=== PATIENT | female | born 1975 | race African-American/Black ===

== ENCOUNTER 2017-01-10 07:36 | Emergency (ER) | payer OTHER ==
[~2017-01-10] VITALS: Ht 160 cm; Wt 81.6 kg
[~2017-01-10 07:36] MED LIST: ANTIVERT25 MG ORAL; CIPROFLOXACIN500 M2 ORAL; IBUPROFEN600 MG ORAL; NKM; ZOFRAN ODT4 MG ORAL; ZOFRAN4 M1 ORAL
--- NOTE | 2017-01-10 08:15 | Emergency Room Report ---
History of Present Illness General Chief Complaint: General Complaint Source: Patient, Medical Record Present Illness HPI The patient presents with left breast swelling and pain and redness. This started one week ago. It's gotten progressively worse. She had D and C 3 weeks ago. She was 6 weeks . They only gave her medication before the procedure and nothing after. There is no discharge from the breast. No fevers , NVD, vaginal d/c, dysuria. Taking motrin at home, but still with 9/10 pain - constant, pressure and burning, not radiating. Never with mammogram. Allergies: Coded Allergies: No Known Allergies (Unverified , 07/16/14) Patient History Past Medical History: see triage record Social History: Reports: smoking Social History Narrative has children Reviewed Nursing Documentation: PMH: Agreed, PSxH: Agreed Review of Systems All Other Systems: negative except mentioned in HPI Physical Exam Vital Signs Date Time Temp Pulse Resp B/P Pulse Ox O2 Delivery O2 Flow Rate FiO2 01/10/17 07:57 98.2 60 16 135/97 99 Room Air Sp02 EP Interpretation: reviewed, normal General Appearance: well appearing, no apparent distress, GCS 15 Head: normocephalic, atraumatic Eyes: bilateral eye PERRL, bilateral eye normal inspection ENT: hearing grossly normal, normal voice, moist mucus membranes Neck: full range of motion, supple Respiratory: no respiratory distress, speaking full sentences Cardiovascular #2: 2+ radial (L) Gastrointestinal: normal inspection Musculoskeletal: gait/station normal, normal range of motion Neurologic: alert, oriented x3, grossly normal Psychiatric: mood/affect normal - frustrated Skin: other - nodule under nipple L (7 o'clock) indurated, no fulctuance, nipple larger than R with some erythema. Skin without erythema Medical Decision Making Diagnostic Impression: Primary Impression: Breast abscess ER Course Patient presents with induration and swelling of the nipple and breast. There' s no fluctuance at this time. This is consistent with an early abscess versus possible mass. Time course more consistent with acute infection, though mass cannot be excluded. was too early to have issues with . As she drove herself here, we are limited in what we can give for analgesia (aside from Rx). The patient will be started on antibiotics and given analgesics. Pain improved. The patient needs to have followup with a surgeon and mammography. Patient stable for outpatient observation and treatment. Chest X-Ray Diagnostic Results Chest X-Ray Ordered: No Last Vital Signs Date Time Temp Pulse Resp B/P Pulse Ox O2 Delivery O2 Flow Rate FiO2 01/10/17 09:04 98.2 01/10/17 09:03 65 17 135/95 99 Room Air Status: improved Disposition: HOME, SELF-CARE Condition: Improved Scripts Bacitracin (Bacitracin) 28.4 Gm Oint...g. 1 APPLIC TOPIC BID, #10 GM Prov: Anirudh Live M.D. 01/10/17 Cephalexin* (KEFLEX*) 500 Mg Capsule 500 MG ORAL Q6H, #28 CAP 0 Refills Prov: Anirudh Live M.D. 01/10/17 Hydrocodone Bit/Acetaminophen 5-325* (NORCO 5-325*) 1 Each Tablet 1 TAB ORAL Q6H Y for For Pain, #10 TAB 0 Refills Prov: Anirudh Live M.D. 01/10/17 Trimethoprim/Sulfamethoxazole 160/800* (BACTRIM DS TABLET*) 1 Each Tablet 1 TAB ORAL Q12H, #14 TAB 0 Refills Prov: Anirudh Live M.D. 01/10/17 Referrals: [facility],REFERRING (PCP) Anirudh Live M.D. Jan 10, 2017 08:15
[2017-01-10 08:36] VITALS: BP 135/95
[2017-01-10] MEDS ORDERED: NORCO 5-325 TA1 EACH ORAL (08:53)
[2017-01-10] MEDS ORDERED: BACTRIM DS TAB1 EAC1 ORAL (08:53)
[2017-01-10] MEDS ORDERED: BACITRACIN15 GM TOPIC (08:53)
[2017-01-10] MEDS ORDERED: KEFLEX500 MG ORAL (08:53)
[2017-01-10] MEDS ORDERED: Cephalexin 500mg cap ORAL ONE (09:00)
[2017-01-10] MEDS ORDERED: Bactrim DS (160mg/800mg) tab ORAL ONE (09:00)
[2017-01-10 09:03] VITALS: BP 135/95
== END 2017-01-10 09:06 | disposition home or self-care (01) ==
LOC: EMR 08:07
DX: N61.1 Abscess of the breast and nipple (principal); F17.200 Nicotine dependence, unspecified, uncomplicated
CPT/HCPCS: 99284

== ENCOUNTER 2017-06-15 15:36 | Emergency (ER) | payer MEDICAID, OTHER ==
[~2017-06-15] VITALS: Ht 162.6 cm; Wt 88.0 kg
[~2017-06-15 15:36] MED LIST changes: +BACITRACIN15 GM TOPIC; +BACTRIM DS TAB1 EAC1 ORAL; +KEFLEX500 MG ORAL; +NORCO 5-325 TA1 EACH ORAL
[2017-06-15 16:00] VITALS: BP 128/83
[2017-06-15] MEDS ORDERED: Ipratropium 0.02% Inh Soln 2.5ml UD HHN ONE (16:15)
[2017-06-15] MEDS ORDERED: Albuterol ud Inhalation HHN ONE (16:15)
[2017-06-15] MEDS ORDERED: PREDNISONE20 MG ORAL (16:44)
[2017-06-15] MEDS ORDERED: FLONASE ALLERG9.9 ML NS (16:44)
[2017-06-15] MEDS ORDERED: PROAIR HFA8.5 GM INH (16:44)
[2017-06-15] MEDS ORDERED: BENADRYL25 MG ORAL (16:44)
[2017-06-15 16:58] VITALS: BP 128/83
--- NOTE | 2017-06-15 17:02 | Emergency Room Report ---
History of Present Illness General Chief Complaint: General Complaint Source: Patient Present Illness [facility] The patient is a 41-year-old female with a stated history of seasonal allergies presenting for sneezing, nasal congestion, facial pain, and cough for the past week. She states that this has worsened today while she was cooking. She took one Claritin this morning which did not help. She denies any recent travel or sick contacts. She denies history of asthma. She denies any other symptoms including N, V, F, chills, CP Allergies: Coded Allergies: No Known Allergies (Unverified , 07/16/14) Patient History Past Medical History: see triage record Pertinent Family History: none Last Menstrual Period: about a week ago Reviewed Nursing Documentation: PMH: Agreed, PSxH: Agreed Nursing Documentation-PMH Past Medical History: No Stated History Review of Systems All Other Systems: negative except mentioned in HPI Physical Exam Vital Signs Date Time Temp Pulse Resp B/P (MAP) Pulse Ox O2 Delivery O2 Flow Rate FiO2 06/15/17 15:39 98.1 110 20 128/83 99 Room Air 06/15/17 16:19 21 Sp02 EP Interpretation: reviewed, normal General Appearance: no apparent distress, alert, GCS 15, non-toxic Head: normocephalic, atraumatic Eyes: bilateral eye normal inspection, bilateral eye PERRL, bilateral eye Scleral Injection ENT: hearing grossly normal, normal pharynx, no angioedema, normal voice, uvula midline, nasal congestion Neck: full range of motion, supple/symm/no masses Respiratory: chest non-tender, no respiratory distress, no accessory muscle use , decreased breath sounds, wheezing - bilat Cardiovascular #1: regular rate, rhythm, no edema Gastrointestinal: normal bowel sounds, non tender, soft, non-distended, no guarding, no rebound Rectal: deferred Genitourinary: normal inspection, no CVA tenderness Musculoskeletal: back normal, gait/station normal, normal range of motion, non- tender Neurologic: alert, oriented x3, responsive, motor strength/tone normal, sensory intact, speech normal Psychiatric: judgement/insight normal, memory normal, mood/affect normal, no suicidal/homicidal ideation Skin: normal color, no rash, warm/dry, well hydrated Lymphatic: no adenopathy Medical Decision Making PA Attestation Dr. Mcelroy is my supervising physician. Patient management was discussed with my supervising physician Diagnostic Impression: Primary Impression: Allergic rhinitis Qualified Codes: J30.9 - Allergic rhinitis, unspecified Additional Impression: Asthma Qualified Codes: J45.20 - Mild intermittent asthma, uncomplicated ER Course The patient is a 41-year-old female with a stated history of seasonal allergies presenting for sneezing, nasal congestion, facial pain, and cough for the past week Differential diagnoses considered but not limited to: sinusitis, allergic rhinitis, Asthma exacerbation, bronchitis, pneumonia, anxiety Physical exam: Vitals within normal limits. No apparent distress HEENT exam reveals nasal congestion. No lymphad Lungs: Decreased breath sounds bilaterally with wheezing. Chest is nontender. No respiratory distress. No accessory muscle use. The patient was given a breathing treatment and is feeling much better. Lungs sounds have improved. Patient is discharged home with a prescription for albuterol, oral steroids, benadryl, and flonase and will followup with PMD. ER precautions are given Last Vital Signs Date Time Temp Pulse Resp B/P (MAP) Pulse Ox O2 Delivery O2 Flow Rate FiO2 06/15/17 16:27 102 22 100 Room Air 21 06/15/17 16:00 98.1 128/83 Status: improved Disposition: HOME, SELF-CARE Condition: Improved Scripts Fluticasone Propionate (Flonase Allergy Relief) 9.9 Ml [place].susp 1 SPRAYS NS DAILY, #10 ML Prov: TERZIAN,JOSE ALFREDO P.A. 06/15/17 Diphenhydramine Hcl* (BENADRYL*) 25 Mg Capsule 25 MG ORAL Q6H Y for Itching, #20 CAP Prov: TERZIAN,JOSE ALFREDO P.A. 06/15/17 Prednisone* (PREDNISONE*) 20 Mg Tablet 40 MG ORAL DAILY, #10 TAB Prov: TERZIAN,JOSE ALFREDO P.A. 06/15/17 Albuterol Sulfate* (PROAIR HFA*) 8.5 Gm Hfa.aer.ad 2 PUFFS INH Q6H, #8.5 GM 0 Refills Prov: TERZIAN,JOSE ALFREDO P.A. 06/15/17 Patient Instructions: Asthma, Adult, Allergic Rhinitis Additional Instructions: I discussed my findings with the patient. All questions and concerns have been answered. Treatment and medication compliance have been addressed. I advised the patient that they need to follow up with PMD in 3-5 days. Return to ED if symptoms worsen, new symptoms arise, or if needed for any reason. Patient verbalized understanding of discharge instructions. JOSE ALFREDO VITAL Jun 15, 2017 17:02
== END 2017-06-15 16:59 | disposition home or self-care (01) ==
LOC: EMR 16:08
DX: J30.9 Allergic rhinitis, unspecified (principal); J45.909 Unspecified asthma, uncomplicated
CPT/HCPCS: 94640; 94664; 99284

== ENCOUNTER 2017-08-06 22:01 | Emergency (ER) | payer MEDICAID, OTHER ==
[~2017-08-06] VITALS: Ht 157.5 cm; Wt 83.5 kg
[~2017-08-06 22:01] MED LIST changes: +BENADRYL25 MG ORAL; +FLONASE ALLERG9.9 ML NS; +PREDNISONE20 MG ORAL; +PROAIR HFA8.5 GM INH
[2017-08-06 22:15] VITALS: BP 122/74
[2017-08-06] MEDS ORDERED: Norco 5mg/325mg tab ORAL ONE (22:30)
[2017-08-06] MEDS ORDERED: Solu-MEDROL 125mg Inj IVP ONE (22:30)
[2017-08-06] MEDS ORDERED: Albuterol ud Inhalation HHN ONE (22:30)
[2017-08-06] MEDS ORDERED: Ipratropium 0.02% Inh Soln 2.5ml UD HHN ONE (22:30)
--- NOTE | 2017-08-06 22:35 | Emergency Room Report ---
History of Present Illness General Chief Complaint: Dyspnea/Respdistress Source: Patient Present Illness HPI Is a 41-year-old female with recent diagnosis of asthma. She's has frequent attack since May. Had to go to [facility] several time. Also had influenza. She's not on a steroid inhaler because of cost. Not on nebulizer treatment. Denies any fever chills denies any nausea vomiting. Also with pain in her chest from all the coughing. Other control pill. She had multiple chest x-rays from [place]. No CT scan. She presents with chief complaint of shortness of breath and wheezing. This has been acutely for the last couple days. Coughing is nonproductive in nature. Worse with inspiration. Worse with walking. Her inhaler not helping. Allergies: Coded Allergies: No Known Allergies (Unverified , 07/16/14) Patient History Past Medical History: see triage record, old chart reviewed, asthma Past Surgical History: none Pertinent Family History: none Social History: Reports: alcohol use - Social Last Menstrual Period: Jul Now: No Immunizations: other Reviewed Nursing Documentation: PMH: Agreed, PSxH: Agreed Review of Systems Eye: Denies: eye pain, blurred vision ENT: Denies: ear pain, nose congestion, throat swelling Respiratory: Reports: cough, shortness of breath, wheezing Cardiovascular: Denies: chest pain, palpitations Gastrointestinal: Denies: abdominal pain, diarrhea, nausea, vomiting Musculoskeletal: Denies: back pain, joint pain Skin: Denies: rash Neurological: Denies: headache, numbness Endocrine: Denies: increased thirst, increased urine Hematologic/Lymphatic: Denies: easy bruising All Other Systems: negative except mentioned in HPI Physical Exam Vital Signs Date Time Temp Pulse Resp B/P (MAP) Pulse Ox O2 Delivery O2 Flow Rate FiO2 08/06/17 22:03 98.8 90 16 118/78 97 Room Air vitals normal Sp02 EP Interpretation: reviewed, normal General Appearance: well appearing, no apparent distress, alert Head: normocephalic, atraumatic Eyes: bilateral eye PERRL, bilateral eye EOMI ENT: hearing grossly normal, normal pharynx Neck: full range of motion, supple, no meningismus Respiratory: chest non-tender, decreased breath sounds, wheezing Cardiovascular #1: regular rate, rhythm, no murmur Gastrointestinal: normal bowel sounds, non tender, no mass, no organomegaly, no bruit, non-distended Musculoskeletal: back normal, gait/station normal, normal range of motion Psychiatric: mood/affect normal Skin: warm/dry Medical Decision Making Diagnostic Impression: Primary Impression: Asthma with exacerbation Qualified Codes: J45.901 - Unspecified asthma with (acute) exacerbation Additional Impression: PCP (phencyclidine) abuse ER Course Patient presents with asthma exacerbation. I suspect is from postinflammatory changes from influenza and also from PCP abuse. No evidence of ACS, PE, dissection, pneumonia to name a few. Her wheezing improved after that lasted treatment. We'll discharge home with prescription for steroid and steroid inhaler. CT/MRI/US Diagnostic Results CT/MRI/US Diagnostic Results : Imaging Test Ordered: CT chest Impression negative per radiologist Last Vital Signs Date Time Temp Pulse Resp B/P (MAP) Pulse Ox O2 Delivery O2 Flow Rate FiO2 08/06/17 22:03 98.8 90 16 118/78 97 Room Air Status: improved Disposition: HOME, SELF-CARE Condition: Stable Scripts Fluticasone Furoate (Arnuity Ellipta) 200 Mcg Blst.w.dev 200 MCG IH BID, #1 UNIT Prov: RICHY PATHAK M.D. 08/07/17 Prednisone* (PREDNISONE*) 20 Mg Tablet 60 MG ORAL DAILY, #15 TAB Prov: RICHY PATHAK M.D. 08/07/17 Referrals: [facility],REFERRING (PCP) Additional Instructions: Followup your Dr. in 3-5 days. Stop Using PCP. This will make your asthma worse. Return if symptom worsen. RICHY PATHAK M.D. Aug 06, 2017 22:35
[2017-08-06 23:04] LABS: APPEARANCE,URINE CLEAR; BILIRUBIN, URINE NEGATIVE (NEGATIVE); COLOR,URINE PALE YELLOW; GLUCOSE, URINE (UA) NEGATIVE (NEGATIVE); KETONES,URINE NEGATIVE (NEGATIVE); LEUKOCYTE ESTERASE ,URINE 1+ (NEGATIVE); NITRITE,URINE NEGATIVE (NEGATIVE); PH,URINE 7 (4.5-8.0); PROTEIN,URINE NEGATIVE (NEGATIVE); UROBILINOGEN,URINE NORMAL MG/DL (0.0-1.0)
[2017-08-06 23:05] LABS: HEMATOCRIT 40.7 % (37.0-47.0); HEMOGLOBIN 12.8 G/DL (12.0-16.0); MEAN CORPUSCULAR VOLUME 93 FL (80-99); PLATELET COUNT 198 K/UL (150-450); RED BLOOD COUNT 4.37 M/UL (4.20-5.40); RED CELL DISTRIBUTION WIDTH 12.2 % (11.6-14.8); WHITE BLOOD COUNT 16.4 K/UL (4.8-10.8)
[2017-08-06 23:24] LABS: ANION GAP 9 mmol/L (5-15); BLOOD UREA NITROGEN 13 mg/dL (7-18); CALCIUM 8.9 MG/DL (8.5-10.1); CARBON DIOXIDE 25 MMOL/L (21-32); CHLORIDE 106 MMOL/L (98-107); CREATININE 0.9 MG/DL (0.55-1.30); POTASSIUM 4.1 MMOL/L (3.5-5.1); SODIUM 140 MMOL/L (136-145)
[2017-08-07] MEDS ORDERED: ARNUITY ELLIP200 MCG IH (00:58)
[2017-08-07] MEDS ORDERED: PREDNISONE20 MG ORAL (00:58)
[2017-08-07] MEDS ORDERED: Albuterol ud Inhalation HHN ONE (01:00)
[2017-08-07 01:10] VITALS: BP 128/76
[2017-08-07 01:20] VITALS: BP 128/76
--- NOTE | 2017-08-07 15:03 | Diagnostic Imaging Report ---
Indication: Pain Technique: CT pulmonary angiogram performed utilizing automated exposure control with intravenous contrast. Axial, sagittal and coronal reconstructions were obtained. 3-D volumetric reconstructions were also performed. CT dose: Total DLP 1012.27 mGycm; CTDI vol 30.37 mGy Comparison: None Findings: Limited evaluation due to patient motion. There is no pulmonary embolism. Main pulmonary artery is normal in size. No thoracic aortic aneurysm or dissection. There is conventional branching anatomy of the great vessels. Right-sided central venous structures are patent. Lung volumes are low. There are dependent atelectatic changes posteriorly. No focal consolidation is appreciated. No pleural effusion or pneumothorax. Borderline enlarged. No pericardial effusion. No pathologically enlarged mediastinal or hilar lymph nodes. Thyroid is normal. Area likely simple renal cyst in the left kidney is partially visualized. Otherwise upper abdomen is grossly unremarkable. Visualized breast tissue appears symmetric. No acute osseous abnormality is seen. Impression: Limited exam due to patient motion. No pulmonary embolism. No aortic aneurysm or dissection. Additional findings as above. This corresponds with the statrad preliminary report. The CT scanner at [facility] is accredited by the [employer] and the scans are performed using protocols designed to limit radiation exposure to as low as reasonably achievable to attain images of sufficient resolution adequate for diagnostic evaluation.
== END 2017-08-07 01:20 | disposition home or self-care (01) ==
LOC: EMR 22:20
DX: J45.901 Unspecified asthma with (acute) exacerbation (principal); F16.10 Hallucinogen abuse, uncomplicated
CPT/HCPCS: 36415; 71275; 80048; 80307; 81003; 81025; 85025; 94640; 94664; 96361; 96374; 99284; J2930; Q9967

== ENCOUNTER 2018-05-31 19:52 | Emergency (ER) | payer MEDICAID, OTHER ==
[~2018-05-31] VITALS: Ht 162.6 cm; Wt 78.9 kg
[~2018-05-31 19:52] MED LIST changes: +ARNUITY ELLIP200 MCG IH
[2018-05-31] MEDS ORDERED: PHENERGAN SUPP25 MG RECTAL (20:12)
--- NOTE | 2018-05-31 20:28 | Emergency Room Report ---
History of Present Illness General Chief Complaint: Flu Like Symptoms Present Illness HPI Ms. Gómez presents with chills, malaise and productive cough for 2 days. Severe symptoms. NO pain. No dyspnea. Hx of tobacco abuse. Gradual onset of symptoms. She requires Tylenol # 3 for chronic pain due to CHI from February. Hx of PTSD Allergies: Coded Allergies: No Known Allergies (Unverified , 07/16/14) Patient History Past Medical History: see triage record Social History: Reports: smoking Last Menstrual Period: last month Now: Yes Reviewed Nursing Documentation: PMH: Agreed; PSxH: Agreed Review of Systems Constitutional: Reports: chills, malaise Respiratory: Reports: cough Cardiovascular: Denies: chest pain Gastrointestinal: Denies: abdominal pain Musculoskeletal: Denies: back pain Neurological: Reports: headache - chronic headache Physical Exam Vital Signs Date Time Temp Pulse Resp B/P (MAP) Pulse Ox O2 Delivery O2 Flow Rate FiO2 05/31/18 20:04 98.2 88 18 134/84 98 Room Air Sp02 EP Interpretation: reviewed, normal General Appearance: no apparent distress, alert, GCS 15, non-toxic Head: normocephalic, atraumatic Eyes: bilateral eye normal inspection ENT: hearing grossly normal, normal pharynx, no angioedema, normal voice Neck: full range of motion, supple/symm/no masses Respiratory: chest non-tender, lungs clear, normal breath sounds, speaking full sentences Cardiovascular #1: regular rate, rhythm, no edema Gastrointestinal: normal bowel sounds, non tender, soft, non-distended, no guarding, no rebound Musculoskeletal: back normal, gait/station normal, normal range of motion Neurologic: alert, oriented x3, responsive, motor strength/tone normal, sensory intact, speech normal Psychiatric: judgement/insight normal, memory normal, mood/affect normal, no suicidal/homicidal ideation Skin: normal color, no rash, warm/dry, well hydrated Medical Decision Making Diagnostic Impression: Primary Impression: Acute bronchitis ER Course acute bronchitis with severe cough and reported wheezing, with hx of tobacco abuse, antibiotics are indicated rx: amoxicillin, prednisone Last Vital Signs Date Time Temp Pulse Resp B/P (MAP) Pulse Ox O2 Delivery O2 Flow Rate FiO2 05/31/18 20:04 98.2 88 18 134/84 98 Room Air Disposition: HOME, SELF-CARE Condition: Stable Luz Elena Hough MD May 31, 2018 20:28
[2018-05-31] MEDS ORDERED: AMOXICILLIN500 MG ORAL (20:29)
[2018-05-31] MEDS ORDERED: PREDNISONE20 MG ORAL (20:29)
[2018-05-31 20:30] VITALS: BP 134/84
[2018-05-31] MEDS ORDERED: Norco 5mg/325mg tab ORAL ONE (20:30)
[2018-05-31 20:56] VITALS: BP 132/81
[2018-05-31 20:57] VITALS: BP 120/73
== END 2018-05-31 20:57 | disposition home or self-care (01) ==
LOC: EMR 20:08
DX: J20.9 Acute bronchitis, unspecified (principal); F17.200 Nicotine dependence, unspecified, uncomplicated
CPT/HCPCS: 99282; J7512

== ENCOUNTER 2018-06-16 04:30 | Emergency (ER) | payer MEDICAID, OTHER ==
[~2018-06-16] VITALS: Ht 162.6 cm; Wt 78.9 kg
[~2018-06-16 04:30] MED LIST changes: +AMOXICILLIN500 MG ORAL; +PHENERGAN SUPP25 MG RECTAL
[2018-06-16 04:48] VITALS: BP 114/72
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
[2018-06-16] MEDS ORDERED: IBUPROFEN600 MG ORAL (05:11)
[2018-06-16 05:20] VITALS: BP 114/72
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
== END 2018-06-16 05:20 | disposition home or self-care (01) ==
LOC: EMR 05:00
DX: S63.637A Sprain of interphalangeal joint of left little finger, initial encounter (principal); Y04.2XXA Assault by strike against or bumped into by another person, initial encounter; Y92.89 Other specified places as the place of occurrence of the external cause
CPT/HCPCS: 29130; 99283

== ENCOUNTER 2018-06-19 18:30 | Emergency (ER) | payer MEDICAID, OTHER ==
[~2018-06-19] VITALS: Ht 162.6 cm; Wt 78.9 kg
[2018-06-19 19:27] VITALS: BP 109/71
--- NOTE | 2018-06-19 19:27 | Emergency Room Report ---
History of Present Illness General Chief Complaint: Flu Like Symptoms Source: Patient Present Illness HPI 42-year-old female patient presents ER complaining of cough with sputum for the past month. Patient reports she had "flu" about a month ago. Reports coughing since that time. reports no nasal discharge during this time. Reports earache and sore throat during this time. Reports shortness of breath, talking full sentences,reports history of breathing problems that required inhaler, denies history of asthma or bronchitis. Denies history of pneumonia. Denies history of heart attack or stroke. Denies hemoptysis. Denies calf pain. Denies recent travel. Denies smoking. Also reports lump on left breast present for the past week and a half. Reports a family history of breast cancer. Denies erythema or edema. Denies nipple discharge. Denies fever, chest pain. denies calf pain. Reports history of smoking cigarettes. Allergies: Coded Allergies: No Known Allergies (Unverified , 07/16/14) Patient History Past Medical History: see triage record Last Menstrual Period: 05/20/18 Reviewed Nursing Documentation: PMH: Agreed; PSxH: Agreed Nursing Documentation-PMH Past Medical History: No History, Except For Review of Systems All Other Systems: negative except mentioned in HPI Physical Exam Vital Signs Date Time Temp Pulse Resp B/P (MAP) Pulse Ox O2 Delivery O2 Flow Rate FiO2 06/19/18 18:52 98.1 79 18 109/71 97 Room Air Sp02 EP Interpretation: reviewed, normal General Appearance: well appearing, no apparent distress, alert, GCS 15, non- toxic Head: normocephalic, atraumatic Eyes: bilateral eye normal inspection, bilateral eye PERRL ENT: hearing grossly normal, normal pharynx, no angioedema, normal voice, TMs + canals normal, uvula midline, moist mucus membranes Neck: full range of motion Respiratory: lungs clear, normal breath sounds, no rhonchi, no respiratory distress, no accessory muscle use, no wheezing, speaking full sentences Cardiovascular #1: regular rate, rhythm, no edema Cardiovascular #2: 2+ radial (R), 2+ radial (L) Gastrointestinal: non tender, soft, no mass, non-distended, no guarding, no rebound Musculoskeletal: back normal, digits/nails normal, gait/station normal, normal range of motion, non-tender, no calf tenderness, Leti's Sign negative Neurologic: alert, oriented x3, responsive, motor strength/tone normal, sensory intact Skin: other - left breasts: Palpable 1 cm probable cyst behind variola, no nipple discharge, no erythema or edema Lymphatic: no adenopathy - axillary Medical Decision Making PA Attestation Dr. Bethea is my supervising Physician whom patient management has been discussed with. Diagnostic Impression: Primary Impression: Bronchitis Additional Impression: Breast cyst ER Course Pt presents to ED c/o cough and "flulike symptoms." DDX considered but are not limited to asthma, viral URI, influenza, bronchitis, pneumonia, Sinusitis, cellulitis, cyst, mastitis, abscess. no calf pain, negative Leti sign, no hemoptysis, no tachycardia, no chest pain , no recent travel, low suspicion for PE per well's criteria. VITAL SIGNS are WNL, patient is afebrile. Ordered breathing treatment and medication. ER COURSE Patient did not cough during physical exam. lungs clear to auscultation, however due to patient history of breathing symptoms in the past and complaints of shortness of breath, will provide patient with breathing treatment in the ER. Patient provided with prednisone and cough medication. Duoneb breathing treatment provided. Chest x-ray negative for acute disease, no consolidation, low suspicion for pneumonia, does not require antibiotics. Following treatment patient states no longer having difficulty with breathing. Patient is resting comfortably in no acute distress. Will discharge home with breathing medication. Denies patient follow-up with primary care provider for further evaluation and treatment for breathing symptoms. symptomatic treatment. Drink plenty of fluids. ER precautions given. Breast exam performed with female instruction librarian present in the room. Small 1 cm palpable mass noted on left breast behind areola, consistent with cyst. No erythema or edema, no signs of infection, does not require treatment antibiotics. Advised patient to follow with primary care provider and discuss referral to breast specialist. provided patient with contact information for general surgeon for breast cyst. discuss need for mammogram and biopsy with primary care provider to rule out malignancy. DISCHARGE: -Rx given for Prednisone. first dose provided in the ER. Begin taking tomorrow. -Rx provided for Albuterol MDI. -Rx provided for Tessalon Perles -Rx provided for Loratadine -Rx provided for Tylenol At this time pt is stable for d/c to home. Patient is resting comfortably in no acute distress, nontoxic appearing, able to answer questions without difficulty. Patient to take medications as instructed Will provide with patient care instructions and any necessary prescriptions. Care plan and follow-up instructions provided. Patient instructed to follow-up with primary care provider in 3 - 5 days. Patient questions asked and answered. Patient reports understanding and agreement to treatment plan. ER precautions given. Patient instructed to return to ER immediately for any new or worsening of symptoms including but not limited to increasing SOB, persistent fever. - Please note that this Emergency Department Report was dictated using [employer]IQ[employer] mobile technology software, occasionally this can lead to erroneous entry secondary to interpretation by the dictation equipment. Chest X-Ray Diagnostic Results Chest X-Ray Diagnostic Results : Chest X-Ray Ordered: Yes # of Views/Limited/Complete: 1 View Indication: Chest Pain EP Interpretation: Yes PA Xray: Interpretation reviewed, by supervising MD, and agrees with findings. Interpretation: no consolidation, no effusion, no pneumothorax, no acute cardiopulmonary disease Impression: No acute disease AMIRAH Scribe Text Kahlil Lloyd PA-C Last Vital Signs Date Time Temp Pulse Resp B/P (MAP) Pulse Ox O2 Delivery O2 Flow Rate FiO2 06/19/18 18:52 98.1 79 18 109/71 97 Room Air Disposition: HOME, SELF-CARE Condition: Stable Scripts Loratadine/Pseudoephedrine (CLARITIN-D 12 HOUR TABLET) 1 Each Tab.er.12h 1 TAB ORAL EVERY 12 HOURS, #24 TAB Prov: Michi Lloyd.A. 06/19/18 Albuterol Sulfate* (ALBUTEROL SULFATE MDI*) 8.5 Gm Hfa.aer.ad 2 PUFF INH Q6H, #1 INH 0 Refills Prov: Michi Lloyd.A. 06/19/18 Acetaminophen* (TYLENOL EXTRA STRENGTH*) 500 Mg Tablet 500 MG ORAL Q8H PRN for Prn Headache/Temp > 101, #30 TAB 0 Refills Prov: Michi Lloyd.A. 06/19/18 Prednisone* (PREDNISONE*) 20 Mg Tablet 40 MG ORAL DAILY for 4 Days, #8 TAB Prov: Michi Lloyd.A. 06/19/18 Benzonatate* (TESSALON PERLE*) 100 Mg Capsule 100 MG ORAL THREE TIMES A DAY, #20 PERLE Prov: PremaMichi mariee 06/19/18 Patient Instructions: Acute Bronchitis, [id number], Breast Cyst Additional Instructions: Followup with primary care provider in 3 -5 days. Discuss referral to breast specialist for mammogram and further testing. Discuss discuss referral to cake press operator for continued breathing symptoms. Discuss need for breathing machine at home. Stop smoking cigarettes. Take medications as directed. Patient questions asked and answered. ER precautions given, patient instructed to return to ER immediately for any new or worsening of symptoms. Michi Lloyd Jun 19, 2018 19:27
[2018-06-19] MEDS ORDERED: Albuterol/Ipratropium 3ml neb HHN ONE (19:30)
[2018-06-19] MEDS ORDERED: Benzonatate 100mg Perles ORAL ONE (19:30)
[2018-06-19] MEDS ORDERED: traMADol 50mg tab ORAL ONE (20:00)
[2018-06-19] MEDS ORDERED: CLARITIN-D 121 EAC1 ORAL (20:03)
[2018-06-19] MEDS ORDERED: ALBUTEROL SULF8.5 GM INH (20:03)
[2018-06-19] MEDS ORDERED: PREDNISONE20 MG ORAL (20:03)
[2018-06-19] MEDS ORDERED: TESSALON PERLE100 MG ORAL (20:03)
[2018-06-19] MEDS ORDERED: TYLENOL EXTRA500 MG ORAL (20:03)
[2018-06-19 20:12] VITALS: BP 110/75
--- NOTE | 2018-06-20 11:57 | Diagnostic Imaging Report ---
Indication: Dyspnea Comparison: None A single view chest radiograph was obtained. Findings: Cardiomediastinal appearance is within normal limits for age. The lungs are clear. Pulmonary vascularity is appropriate. The diaphragmatic contour is smooth and costophrenic angles are sharp. No pleural effusions are identified. The bones are unremarkable. Impression: No acute findings
== END 2018-06-19 20:15 | disposition home or self-care (01) ==
LOC: EMR 19:32
DX: J40 Bronchitis, not specified as acute or chronic (principal); N60.02 Solitary cyst of left breast
CPT/HCPCS: 71045; 94640; 99284; J7512; J7620

== ENCOUNTER 2018-10-27 00:54 | Emergency (ER) | payer MEDICAID ==
[~2018-10-27] VITALS: Ht 157.5 cm; Wt 81.6 kg
[~2018-10-27 00:54] MED LIST changes: +ALBUTEROL SULF8.5 GM INH; +CLARITIN-D 121 EAC1 ORAL; +TESSALON PERLE100 MG ORAL; +TYLENOL EXTRA500 MG ORAL
[2018-10-27 01:15] VITALS: BP 124/82
--- NOTE | 2018-10-27 01:15 | NUR ---
ED Nurse Note: patient walked in c/o toothache. AAO x4, VSS at this time.
[2018-10-27] MEDS ORDERED: AUGMENTIN 875-1 EAC1 ORAL (01:29)
[2018-10-27] MEDS ORDERED: HYDROCODON-ACE1 EA15 ORAL (01:29)
[2018-10-27] MEDS ORDERED: IBUPROFEN600 MG ORAL (01:29)
--- NOTE | 2018-10-27 01:29 | Emergency Room Report ---
History of Present Illness General Chief Complaint: Toothache Source: Patient Present Illness HPI Is a 43-year-old female with no past medical history other than anxiety. She presents with chief point of dental pain. Onset for last couple days but no fever chills. No nausea no vomiting. Localized to the for was some teeth. Denies any other complaint. No swelling. Pain is 8 out of 10. Worse with eating. Allergies: Coded Allergies: No Known Allergies (Unverified , 07/16/14) Patient History Past Medical History: see triage record, old chart reviewed Past Surgical History: none Pertinent Family History: none Social History: Denies: smoking Immunizations: other Reviewed Nursing Documentation: PMH: Agreed; PSxH: Agreed Review of Systems Eye: Denies: eye pain, blurred vision ENT: Denies: ear pain, nose congestion, throat swelling Respiratory: Denies: cough, shortness of breath Cardiovascular: Denies: chest pain, palpitations Gastrointestinal: Denies: abdominal pain, diarrhea, nausea, vomiting Musculoskeletal: Denies: back pain, joint pain Skin: Denies: rash Neurological: Denies: headache, numbness Endocrine: Denies: increased thirst, increased urine Hematologic/Lymphatic: Denies: easy bruising All Other Systems: negative except mentioned in HPI Physical Exam Vital Signs Date Time Temp Pulse Resp B/P (MAP) Pulse Ox O2 Delivery O2 Flow Rate FiO2 10/27/18 00:58 98.4 93 16 124/82 96 Room Air vitals normal Sp02 EP Interpretation: reviewed, normal General Appearance: well appearing, no apparent distress, alert Head: normocephalic, atraumatic Eyes: bilateral eye PERRL, bilateral eye EOMI ENT: hearing grossly normal, normal pharynx, other - Her wisdom teeth are cracked and decayed. No abscess seen. Neck: full range of motion, supple, no meningismus Respiratory: chest non-tender, lungs clear, normal breath sounds Cardiovascular #1: regular rate, rhythm, no murmur Gastrointestinal: normal bowel sounds, non tender, no mass, no organomegaly, no bruit, non-distended Musculoskeletal: back normal, gait/station normal, normal range of motion Psychiatric: mood/affect normal Skin: warm/dry Medical Decision Making Diagnostic Impression: Primary Impression: Toothache ER Course Patient with dental pain. May be secondary to infection. No obvious abscess seen. We'll discharge home. Last Vital Signs Date Time Temp Pulse Resp B/P (MAP) Pulse Ox O2 Delivery O2 Flow Rate FiO2 10/27/18 00:58 98.4 93 16 124/82 96 Room Air Status: improved Disposition: HOME, SELF-CARE Condition: Stable Scripts Ibuprofen* (MOTRIN*) 600 Mg Tablet 600 MG ORAL THREE TIMES A DAY, #30 TAB 0 Refills Prov: Slava Brewer MD 10/27/18 Hydrocodone/Acetaminophen 5-325* (HYDROCODONE/ACETAMINOPHEN 5-325*) 1 Each Tablet 1 TAB ORAL Q6H PRN for For Pain, #10 TAB 0 Refills Prov: Slava Brewer MD 10/27/18 Amoxicillin/Potassium Clav 875-125* (AUGMENTIN 875-125 TABLET*) 1 Each Tablet 1 TAB ORAL TWICE A DAY, #14 TAB Prov: Slava Brewer MD 10/27/18 Patient Instructions: Dental Pain Additional Instructions: Follow-up with dentist SILV[facility]. Return if symptom worsen. Slava Brewer MD Oct 27, 2018 01:29
[2018-10-27] MEDS ORDERED: HYDROcodone/Acetamin 5/325 tab ORAL ONE (01:30)
--- NOTE | 2018-10-27 01:50 | NUR ---
ED Nurse Note: Pt cleared by health care Provider for discharge. DC instructions/prescription was given and explained to pt and verbalized understanding of teachings. All medical deviecs such as ID band removed. Pt is AAO x4, ambulatory and left with all personal belongings.
== END 2018-10-27 01:10 | disposition home or self-care (01) ==
LOC: EMR 01:08
DX: K08.89 Other specified disorders of teeth and supporting structures (principal); F41.9 Anxiety disorder, unspecified
CPT/HCPCS: 99283

== ENCOUNTER 2019-01-02 15:21 | Emergency (ER) | payer MEDICAID ==
[~2019-01-02] VITALS: Ht 157.5 cm; Wt 81.6 kg
[~2019-01-02 15:21] MED LIST changes: +AUGMENTIN 875-1 EAC1 ORAL; +HYDROCODON-ACE1 EA15 ORAL
[2019-01-02] MEDS ORDERED: Piperacillin/Tazobactam 2.25 GM in NS 110 ML IVPB ONE (15:45)
[2019-01-02] MEDS ORDERED: Ketorolac 30mg Inj IV ONE (15:45)
[2019-01-02 16:28] LABS: EOSINOPHILS % (AUTO) 0.8 % (0.0-3.0); HEMATOCRIT 41.4 % (37.0-47.0); LYMPHOCYTES % (AUTO) 16.2 % (20.0-45.0); MEAN CORPUSCULAR VOLUME 91 FL (80-99); MONOCYTES % (AUTO) 7.7 % (1.0-10.0); NEUTROPHILS % (AUTO) 74.3 % (45.0-75.0); PLATELET COUNT 154 K/UL (150-450); RED BLOOD COUNT 4.56 M/UL (4.20-5.40); WHITE BLOOD COUNT 13.4 K/UL (4.8-10.8)
[2019-01-02 16:43] LABS: ANION GAP 8 mmol/L (5-15); BLOOD UREA NITROGEN 9 mg/dL (7-18); CARBON DIOXIDE 25 MMOL/L (21-32); CHLORIDE 105 MMOL/L (98-107); CREATININE 0.7 MG/DL (0.55-1.30); POTASSIUM 4.3 MMOL/L (3.5-5.1); SODIUM 138 MMOL/L (136-145)
[2019-01-02 16:49] LABS: ALANINE AMINOTRANSFERASE 17 U/L (12-78); ALBUMIN 3.8 G/DL (3.4-5.0); ALBUMIN/GLOBULIN RATIO 0.9 (1.0-2.7); ALKALINE PHOSPHATASE 81 U/L (46-116); ASPARTATE AMINO TRANSFERASE 13 U/L (15-37); BILIRUBIN,TOTAL 0.3 MG/DL (0.2-1.0)
--- NOTE | 2019-01-02 16:50 | Emergency Room Report ---
History of Present Illness General Chief Complaint: Skin Rash/Abscess Source: Patient Present Illness HPI 43-year-old female with repeated history of cellulitis of left breast here complaining of increased pain and pressure in left breast x2 days. Patient went to a different hospital last week with appropriate labs and ultrasound of the breast were done and patient was diagnosed with breast cellulitis, first given Keflex and ibuprofen when she went back she was given Augmentin and currently on Augmentin. Patient is rating her pain 10 out of 10 without radiation, denies fever and chills. Denies tingling or numbness. Denies chest pain, shortness of breath, palpitation and all other associated symptoms. Patient reports that she had a mammogram done last year and was within normal limits Allergies: Coded Allergies: No Known Allergies (Unverified , 07/16/14) Patient History Past Medical History: see triage record Past Surgical History: unable to obtain Pertinent Family History: none Last Menstrual Period: 12/16/2018 Now: No Immunizations: UTD Reviewed Nursing Documentation: PMH: Agreed; PSxH: Agreed Nursing Documentation-PMH Past Medical History: No History, Except For Review of Systems All Other Systems: negative except mentioned in HPI Physical Exam Vital Signs Date Time Temp Pulse Resp B/P (MAP) Pulse Ox O2 Delivery O2 Flow Rate FiO2 01/02/19 15:31 98.8 84 19 129/81 (97) 96 Room Air Sp02 EP Interpretation: reviewed, normal General Appearance: normal inspection, well appearing, no apparent distress Head: normocephalic, atraumatic Eyes: bilateral eye normal inspection, bilateral eye PERRL ENT: normal ENT inspection, hearing grossly normal, normal pharynx Neck: normal inspection, full range of motion, supple Respiratory: normal inspection, chest non-tender, lungs clear, normal breath sounds, no wheezing Cardiovascular #1: normal inspection, regular rate, rhythm, no edema, no murmur Gastrointestinal: normal inspection, soft, no mass Rectal: deferred Musculoskeletal: normal inspection, back normal, other - cellulitis left breast , possible deep abscess Neurologic: normal inspection, alert, oriented x3 Psychiatric: normal inspection, judgement/insight normal Skin: rash - Cellulitis of left breast no pus drainage, possible deep abscess warm to touch. Lymphatic: normal inspection, no adenopathy Medical Decision Making PA Attestation All my diagnosis and treatment plans were reviewed ad discussed with my supervising physician Dr. Live Diagnostic Impression: Primary Impression: Cellulitis of left breast ER Course 43-year-old female with repeated history of cellulitis of left breast here complaining of increased pain and pressure in left breast x2 days. Patient went to a different hospital last week with appropriate labs and ultrasound of the breast were done and patient was diagnosed with breast cellulitis, first given Keflex and ibuprofen when she went back she was given Augmentin and currently on Augmentin. Patient is rating her pain 10 out of 10 without radiation, denies fever and chills. Denies tingling or numbness. Denies chest pain, shortness of breath, palpitation and all other associated symptoms. Patient reports that she had a mammogram done last year and was within normal limits Ddx considered but are not limited to: Left breast cellulitis, abscess of left breast, sepsis, breast mass Vital signs: are WNL, pt. is afebrile H&PE are most consistent with: Left breast cellulitis with possible deep abscess ORDERS: CBC, CMP, Zosyn IV, Tylenol 3, ibuprofen 800, Bactrim DS ED INTERVENTIONS: Zosyn IV, Tylenol 3 DISCHARGE: At this time pt. is stable for d/c to home. Will provide printed patient care instructions, and any necessary prescriptions. Care plan and follow up instructions have been discussed with the patient prior to discharge. I advised the patient to follow-up with the primary care provider for referral to general surgery for possible drainage of the abscess as it is too close to the nipple and is deep and he needs to be done via general surgery take medication as directed diagnostic ultrasound of the left breast needed. To be completed by the primary care provider as there was one already done at the different emergency room earlier this week White blood cell 13 Last Vital Signs Date Time Temp Pulse Resp B/P (MAP) Pulse Ox O2 Delivery O2 Flow Rate FiO2 01/02/19 15:31 98.8 84 19 129/81 (97) 96 Room Air Disposition: HOME, SELF-CARE Condition: Stable Scripts Acetaminophen With Codeine (T#3) (TYLENOL #3 TAB*) Y Tab 1 TAB ORAL Q8HR PRN for For Pain for 3 Days, #10 TAB Prov: Osman Camara 01/02/19 Ibuprofen (Ibuprofen) 800 Mg Tablet 800 MG PO BID, #20 TAB Prov: Sahelimoghavami,Nahal PA 01/02/19 Trimethoprim/Sulfamethoxazole 160/800* (BACTRIM DS TABLET*) 1 Each Tablet 1 TAB ORAL TWICE A DAY for 7 Days, #14 TAB Prov: Osman Camara 01/02/19 Patient Instructions: Breast Reduction, Care After, Cellulitis, [id number] Additional Instructions: Follow-up with your primary care provider for diagnostic left breast ultrasound to look of the cyst and referral to general surgery for possible drainage Osman Camara Jan 02, 2019 16:50
[2019-01-02] MEDS ORDERED: IBUPROFEN800 M1 PO (16:52)
[2019-01-02] MEDS ORDERED: BACTRIM DS TAB1 EAC1 ORAL (16:52)
[2019-01-02] MEDS ORDERED: ACETAMINOPHEN-1 EAC1 ORAL (16:52)
[2019-01-02 17:02] VITALS: BP 121/82
[2019-01-02 17:08] VITALS: BP 121/82
== END 2019-01-02 17:15 | disposition home or self-care (01) ==
LOC: EMR 17:11
DX: N61.0 Mastitis without abscess (principal)
CPT/HCPCS: 36415; 80053; 85025; 96365; 96375; 99284; J1885; J2543

== ENCOUNTER 2020-04-12 21:03 | Emergency (ER) | payer MEDICAID, OTHER ==
[~2020-04-12] VITALS: Ht 154.9 cm; Wt 97.1 kg
[~2020-04-12 21:03] MED LIST changes: +ACETAMINOPHEN-1 EAC1 ORAL; +IBUPROFEN800 M1 PO
[2020-04-12] MEDS ORDERED: IBUPROFEN600 M1 ORAL (21:13)
[2020-04-12 21:18] VITALS: BP 145/90
--- NOTE | 2020-04-12 21:18 | NUR ---
ED Nurse Note: pt ambulated into ed from home CO left ear ache after deep cleaning at dentist office x 4 weeks ago. Pt states that pain and discomfort are 8/10 and have become progressively worse since dental visit. Pt aao x 4 ambulates with steady gait, VSS. Awaiting further orders. Awaiting ERMD at bedside. UA sent to lab. Addendum: 04/12/20 at 2130 by KALLI ED Nurse Note: pt ambulated into ed from home CO left ear ache after deep cleaning at dentist office x 4 weeks ago. Pt states that pain and discomfort are 8/10 and have become progressively worse since dental visit. Pt aao x 4 ambulates with steady gait, VSS. Awaiting further orders. Awaiting ERMD at bedside. UA sent to lab. pt denies hearing loss/difficulty hearing or difficulty swallowing.
--- NOTE | 2020-04-12 21:28 | NUR ---
ED Nurse Note: ERMD at bedside
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
[2020-04-12] MEDS ORDERED: BREO ELLIPTA 21 EACH IH (21:38)
[2020-04-12] MEDS ORDERED: NORCO 5-325 TA1 EAC1 ORAL (21:39)
--- NOTE | 2020-04-12 21:42 | NUR ---
ED Nurse Note: All medications administered, pt tolerated well no ss of distress noted. will continue to monitor.
[2020-04-12] MEDS ORDERED: Cortisporin OTIC Susp 10ml LEFT EAR ONE (21:45)
[2020-04-12] MEDS ORDERED: Ketorolac 30mg Inj IM ONE (21:45)
--- NOTE | 2020-04-12 21:46 | NUR ---
ED Nurse Note: ERMD at bedside
[2020-04-12 21:55] VITALS: BP 142/82
--- NOTE | 2020-04-12 21:55 | NUR ---
ER DISCHARGE NOTE: Patient is cleared to be discharged home per ERMD, pt is aox4, 98% on room air, with stable vital signs. pt was given dc and prescription instructions, pt was able to verbalize understanding, pt id band removed. pt is able to ambulate with steady gait. pt took all belongings.
== END 2020-04-12 21:55 | disposition home or self-care (01) ==
LOC: EMR 21:28
DX: H60.312 Diffuse otitis externa, left ear (principal); J98.01 Acute bronchospasm; F17.200 Nicotine dependence, unspecified, uncomplicated
CPT/HCPCS: 96372; J1885; Z7502; 99283

== ENCOUNTER 2020-06-19 06:24 | Emergency (ER) | payer OTHER ==
[~2020-06-19] VITALS: Ht 162.6 cm; Wt 90.7 kg
[~2020-06-19 06:24] MED LIST changes: +BREO ELLIPTA 21 EACH IH; +IBUPROFEN600 M1 ORAL; +NORCO 5-325 TA1 EAC1 ORAL
[2020-06-19 06:42] VITALS: BP 161/99
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
[2020-06-19 07:35] VITALS: BP 161/99
--- NOTE | 2020-06-19 07:35 | NUR ---
ED Nurse Note:came to check up on the pt. but she was gone with her belongings
== END 2020-06-19 07:35 | disposition left against medical advice (07) ==
LOC: EMR 06:32
DX: Z04.41 Encounter for examination and observation following alleged adult rape (principal); Z53.29 Procedure and treatment not carried out because of patient's decision for other reasons
CPT/HCPCS: 99281

== ENCOUNTER 2020-06-25 23:07 | Emergency (ER) | payer OTHER ==
[~2020-06-25] VITALS: Ht 162.6 cm; Wt 90.7 kg
[2020-06-25 23:20] VITALS: BP 122/72
--- NOTE | 2020-06-25 23:20 | NUR ---
ED Nurse Note: Patient walked into ED for c/o head, R arm and L leg pain s/p falling in the shower 2 days ago. No LOC, SOB, N/V. Patient states she was seen at a hospital in [place] for same complaint and was DC home. She is ambulatory. changed into gown; attached to monitor. patient ao4 with no acute distress. all safety measures met
--- NOTE | 2020-06-25 23:33 | NUR ---
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
--- NOTE | 2020-06-26 | NUR ---
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 patient presents with no acute distress.
--- NOTE | 2020-06-26 00:04 | Diagnostic Imaging Report ---
EXAM: CT Head Without Intravenous Contrast CLINICAL HISTORY: PAIN TECHNIQUE: Axial computed tomography images of the head/brain without intravenous contrast. CTDI is 53.40 mGy and DLP is 1045.50 mGy-cm. One or more of the following dose reduction techniques were used: automated exposure control, adjustment of the mA and/or kV according to patient size, use of iterative reconstruction technique. COMPARISON: No relevant prior studies available. FINDINGS: Brain: No hemorrhage. No edema. Ventricles: No ventriculomegaly. Bones/joints: No acute fracture. Chronic appearing deformity of the left medial orbital wall Soft tissues: Unremarkable. Sinuses: No acute sinusitis. Mastoid air cells: No mastoid effusion. IMPRESSION: No acute intracranial process.
[2020-06-26] MEDS: Acetaminophen 500mg (ES) tab ORAL ONE ×2 (00:10→00:28)
[2020-06-26 01:43] LABS: APPEARANCE,URINE CLEAR; BILIRUBIN, URINE NEGATIVE (NEGATIVE); COLOR,URINE PALE YELLOW; GLUCOSE, URINE (UA) NEGATIVE (NEGATIVE); KETONES,URINE NEGATIVE (NEGATIVE); LEUKOCYTE ESTERASE ,URINE NEGATIVE (NEGATIVE); NITRITE,URINE NEGATIVE (NEGATIVE); PH,URINE 5 (4.5-8.0); PROTEIN,URINE NEGATIVE (NEGATIVE); UROBILINOGEN,URINE NORMAL MG/DL (0.0-1.0)
[2020-06-26 02:00] VITALS: BP 121/71
--- NOTE | 2020-06-26 03:26 | Emergency Room Report ---
History of Present Illness General Chief Complaint: Pain Source: Patient Present Illness HPI 44F LHD female c/o right wrist pain s/p mechanical fall in the shower 2 days ago. Patient denies LOC, neck/back pain, syncope, CP, Abd pain, SOB, dysuria, pelvic pain or other symptoms Patient was seen at outside ER and discharged after being told everything "was negative". She is requesting pain control because she ran out of pain meds at home The patient's symptoms were gradual onset, severity was moderate, duration since 2 days Quality: aching Past medical history: Denies Past surgical history: Denies Smoking: Denies Alcohol use: Denies Drug use: Denies Review of systems: CONST: No fevers or chills, No night sweats PULMONARY: No productive cough, No shortness of breath CARDIAC: No chest pain, No palpitations GI: No vomiting, No diarrhea , No melena_or_BRBPR : No dysuria, No hematuria, No discharge NEURO: No new_focal_weakness_or_numbness, No confusion, No vision changes 14 point Review of Systems is otherwise negative except per HPI Physical Exam: GENERAL: Awake_alert_ nontoxic, no acute distress Spo2 100% on RA-normal EYES: Extraocular muscles are intact. Conjunctivae clear. Lids without swelling ENT: External nose and ear normal_in_appearance. Oropharynx clear. Head_atraumatic, Moist_oral_mucosa NECK: No JVD. No meningismus. No thyromegaly. Supple. Trachea midline RESP: Normal respiratory effort. Symmetric rise. No stridor. Clear_to_auscultation_No_rales_No_wheezes CARDIAC: Tachycardic and regular rhytm. No_significant pedal edema. ABDOMEN: Soft. Nondistended. Nontender_No_rebound_or_guarding. MSK: Normal muscle tone, without rigidity. Extremities without asymmetric deformity or swelling. Upper extremity exam: LEFT Elbow: No swelling / effusion appreciated, no significant pain with passive range of motion Wrist: No swelling / effusion appreciated, no significant pain with passive range of motion Lateral epicondyle: no tenderness / swelling / ecchymoses Medial epicondyle: no tenderness / swelling / ecchymoses Radial pulse: 2+ Capillary refill: <3 seconds in all fingers All fingers: full range of motion without any tenderness / swelling / deformity / evidence of infection Scaphoid: no tenderness / swelling / ecchymoses, no pain with axial loading of the thumb Radian / Median / Ulnar nerves: all intact (finger opposition, finger adduction / abduction, thumb dorsiflexion) Sensation intact to light touch: in all fingers Strength 5/5 with: wrist dorsi / volar flexion, hand mushroom sorter grader, elbow flexion / extension SKIN: Warm and dry. No visible cyanosis or pallor NEUROLOGIC: Alert, oriented x3. Motor_and_sensation_grossly_intact. No truncal ataxia. Gait_normal Psych: Normal mood and affect, normal judgment and insight - COORDINATION OF CARE Case was discussed with: Patient Any labs and imaging] that were ordered were interpreted as part of the medical decision making: Medical Decision Making/Plan Differential diagnosis includes musculoskeletal pain, fracture, dislocation, compartment syndrome, arterial occlusion, nerve damage, among others. Patient is well appearing and neuro intact. CURES performed.Pt was given 10 oxycodone recently and ran out. Distally the patient has capillary refill <2 seconds and strong pulses. There is no pallor or pain out of proportion to exam. There is no significant swelling, deformity, or report of significant dislocation that subsequently reduced. No evidence of arterial occlusion or injury. The associated joints have full range of motion without any significant pain or restriction in mobility. No evidence at this time of major ligamentous disruption. Xrays of the RUE are within normal limits, compartments are soft, the patient is able to bear weight and has no neurologic deficits. No evidence of fracture, dislocation, foreign body, significant nerve damage, compartment syndrome at this time. However, the patient was informed that occult fractures or foreign bodies are not always apparent on their first visit and understand to follow up with their regular doctor for a reevaluation and repeat xrays within the next 2-3 days, to ensure their symptoms completely resolve. Splint to the R wrist was applied. Sling placed for comfort. Will Dc with norco, narcan, and instructions to f/u with PMD. Pt advised not to take norco and drive or with alcohol as it is potentially sedating. Pt verbalizes her understanding Allergies: Coded Allergies: No Known Allergies (Unverified , 06/25/20) COVID-19 Screening Contact w/high risk pt: No Experienced COVID-19 symptoms?: No COVID-19 Testing performed MANAGER JAVA: No Patient History Last Menstrual Period: 05/2020 Now: No : 2 Para: 2 Nursing Documentation-[facility] Past Medical History: No History, Except For Physical Exam Vital Signs Date Time Temp Pulse Resp B/P (MAP) Pulse Ox O2 Delivery O2 Flow Rate FiO2 06/25/20 23:14 98.4 113 18 122/72 (89) 96 Room Air Procedures Splinting Progress PROCEDURE NOTE R thumb spica Splint: splint applied to R wrist Splint applied by tech with direct supervision by me. Reassessed following splint application. Neurovascular intact. Compartments remain soft and compressible. Pt tolerated well without complications. Splint care instructions were discussed. Pt to follow up with orthopedics within 1 week to prevent future arthritis and senior care disability. PROCEDURE NOTE Right upper extremity sling applied to right upper extremity Splint applied by tech with direct supervision by . Reassessed following splint application. Neurovascular intact. Compartments remain soft and compressible. Pt tolerated well without complications. Splint care instructions were discussed. 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 Medical Decision Making Diagnostic Impression: Primary Impression: Wrist pain, right Additional Impressions: Fall Anxiety Chest X-Ray Diagnostic Results Chest X-Ray Diagnostic Results : PA Scribe Text Right hand X-ray: Views: 2 view(s) No fracture. Normal alignment. Soft tissues normal. Joint spaces normal. Indication: Pain Impression: no acute disease The X-ray(s) were independently viewed and interpreted contemporaneously - Electronically signed by Margi dhillon DO Right wrist X-ray: Views: 3 view(s) No fracture. Normal alignment. Soft tissues normal. Joint spaces normal. Indication: Pain Impression: no acute disease The X-ray(s) were independently viewed and interpreted contemporaneously - Electronically signed by Margi dhillon DO Right forearm X-ray: Views: 2 view(s) No fracture. Normal alignment. Soft tissues normal. Joint spaces normal. Indication: Pain Impression: no acute disease The X-ray(s) were independently viewed and interpreted contemporaneously - Electronically signed by Margi dhillon DO Chest X-Ray: Views: 1 view(s) Indication: Fall Findings: Normal heart size. Mediastinum normal. No infiltrate. Impression: No acute disease. No pneumothorax. No pneumothorax The X-ray(s) were independently viewed and interpreted contemporaneously Electronically signed by Margi dhillon DO Reevaluation Time: 03:25 Last Vital Signs Date Time Temp Pulse Resp B/P (MAP) Pulse Ox O2 Delivery O2 Flow Rate FiO2 06/25/20 23:20 98.4 99 18 122/72 96 Room Air Status: improved Disposition: HOME, SELF-CARE Admit Decision Time: 03:25 Condition: Stable Scripts Naproxen* (NAPROSYN*) 250 Mg Tablet 250 MG ORAL TID PRN for For Pain, #20 TAB 0 Refills Prov: Margi Avalos D.O. 06/26/20 Naloxone HCl (Narcan) 4 Mg [place] 4 MG NS ONCE for 1 Day, #1 SPRAY Prov: Margi Avalos D.O. 06/26/20 Hydrocodone Bit/Acetaminophen 5-325* (NORCO 5-325 TABLET*) 1 Each Tablet 1 TAB ORAL Q4H PRN for For Pain, #10 TAB Prov: Margi Avalos D.O. 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 If you have recurrent pain to the right wrist, please return for repeat x-rays within 7 days. Do not remove your splint until cleared by orthopedic doctor as discussed. Do not drive while taking [place]. Do not combine with alcohol. [place] is potentially sedating. Follow-up with your doctor sooner if your condition requires a more timely clinical reevaluation. Return to the emergency department immediately if you feel that your condition is worsening or if you have any new or concerning symptoms. Review your discharge instructions and take any prescriptions given as instructed. [facility] PROVIDES FREE OR LOW-COST HEALTH SERVICES TO PEOPLE WHO CAN SHOW PROOF THAT THEY LIVE IN [facility]. TO FIND MORE CLINICS PARTNERED WITH THE [facility] TO PROVIDE SERVICE, PLEASE CALL . Margi Avalos D.O. Jun 26, 2020 03:26
--- NOTE | 2020-06-26 03:26 | NUR ---
ED Nurse Note: right wrist splint applied.
[2020-06-26] MEDS ORDERED: NARCAN4 MG NS (03:28)
[2020-06-26] MEDS ORDERED: NORCO 5-325 TA1 EAC1 ORAL (03:28)
[2020-06-26] MEDS ORDERED: NAPROXEN250 MG ORAL (03:28)
[2020-06-26] MEDS ORDERED: HYDROcodone/Acetamin 5/325 tab ORAL ONE (03:30)
[2020-06-26 03:45] VITALS: BP 119/66
--- NOTE | 2020-06-26 03:45 | NUR ---
ER DISCHARGE NOTE: Patient is cleared to be discharged per ERMD, pt is aox4, on room air, with stable vital signs. pt was given dc and prescription instructions, pt was able to verbalize understanding, pt id band removed. pt is able to ambulate with steady gait. pt took all belongings.
--- NOTE | 2020-06-26 17:21 | Diagnostic Imaging Report ---
Indication: Right hand pain Technique: 3 views right hand Comparison: none Findings: No acute fracture. No dislocation. Joint spaces are preserved. Impression: Negative
--- NOTE | 2020-06-26 17:34 | Diagnostic Imaging Report ---
Indications: Right arm pain Technique: Two views of the right forearm Comparison: None Findings: No acute fracture. No dislocation. The joint spaces are preserved Impression: Negative
== END 2020-06-26 03:45 | disposition home or self-care (01) ==
LOC: EMR 23:21
DX: M25.531 Pain in right wrist (principal); F41.9 Anxiety disorder, unspecified; W18.2XXA Fall in (into) shower or empty bathtub, initial encounter; Y93.E1 Activity, personal bathing and showering; Y92.012 Bathroom of single-family (private) house as the place of occurrence of the external cause
CPT/HCPCS: 29125; 70450; 73090; 73110; 81003; 81025; Z7502; 29105; 29130; 99284

== ENCOUNTER 2020-09-10 18:20 | Emergency (ER) | payer OTHER ==
[~2020-09-10] VITALS: Ht 162.6 cm; Wt 90.7 kg
[~2020-09-10 18:20] MED LIST changes: +NAPROXEN250 MG ORAL; +NARCAN4 MG NS
--- NOTE | 2020-09-10 18:27 | NUR ---
not in the room
[2020-09-10 18:54] VITALS: BP 140/94
--- NOTE | 2020-09-10 18:57 | NUR ---
ED Nurse Note: bilat hand pain since Dec, gave pt wrist brace for the left wrist
--- NOTE | 2020-09-10 19:03 | Emergency Room Report ---
History of Present Illness General Chief Complaint: Pain Source: Patient Present Illness HPI Disclaimer: Please note that this report is being documented using eSpark technology. This can lead to erroneous entry secondary to incorrect interpretation by the dictating instrument. HPI: 44-year-old [id number] female presents for evaluation of wrist pain. She had a slip and fall injury 2 months ago after which she was seen at a hospital in [facility]. Imaging was negative. She then presented on 06/25/2020 complaining of numbness and tingling in the wrist. She again had negative imaging. Placed in a wrist splint on the right which he states improve d her symptoms. She believes she is overusing the left wrist and now having similar symptoms in the left wrist. She is requesting a wrist brace for the left wrist as she states she cannot afford one otherwise. No new injury. States she has preserved range of motion. Denies pale appearance to the digits. Denies atrophy. 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 EOMI. Resp: Normal work of breathing Skin: Intact. No abrasions, laceration or rash over the exposed skin MSK: Normal tone and bulk. Moving all extremities. No obvious deformity. Full range of motion with flexion, extension, opposition in the left and right hand. 2+ radial pulses. Brisk capillary refill all digits. Full sensation of the radial and ulnar aspects of all digits to light touch. Neuro: Awake and alert. Mentating appropriately Medical Decision Making Diagnostic Impression: Primary Impression: Wrist pain ER Course 44-year-old female requests wrist brace for persistent pain and paresthesias in the hands after a slip and fall several months ago. No new injury. No indication for repeat imaging. She is neurologically and vascularly intact in all digits. May be a peripheral nerve issue from her fall but of low suspicion for carpal tunnel. Will provide a prefabricated Velcro wrist brace. She also wants a note for work. Stable for outpatient follow-up Last Vital Signs Date Time Temp Pulse Resp B/P (MAP) Pulse Ox O2 Delivery O2 Flow Rate FiO2 09/10/20 18:54 98.1 17 140/94 98 Room Air 09/10/20 18:44 88 Disposition: HOME, SELF-CARE Condition: Stable Referrals: [facility] Departure Forms: Return to Work Return to Work Date: Sep 12, 2020 Patient Instructions: Wrist Splint Additional Instructions: Please follow-up with your primary care doctor in the next 1 to 3 days to discuss this emergency department visit and for reevaluation. If you have any new or worsening symptoms please return to the emergency department for reevaluation. Please note that this report is being documented using eSpark technology. This can lead to erroneous entry secondary to incorrect interpretation by the dictating instrument. Adan Ruby MD Sep 10, 2020 19:03
== END 2020-09-10 19:02 | disposition home or self-care (01) ==
LOC: EMR 19:00
DX: M25.532 Pain in left wrist (principal); Z91.81 History of falling
CPT/HCPCS: 99281